=== PATIENT | male | born 1935 | race Caucasian/White ===

== ENCOUNTER 2016-10-26 20:30 | Emergency (ER) | payer MEDICARE, MEDICAID, OTHER ==
[~2016-10-26] VITALS: Ht 175.3 cm; Wt 72.6 kg
[2016-10-26 20:52] VITALS: BP 153/90
== END 2016-10-27 03:20 | disposition left against medical advice (07) ==
LOC: ER 20:30
DX: E78.00 Pure hypercholesterolemia, unspecified (principal); Z76.0 Encounter for issue of repeat prescription; Z53.21 Procedure and treatment not carried out due to patient leaving prior to being seen by health care provider

== ENCOUNTER 2017-11-20 11:59 | Emergency (ER) | payer MEDICARE, MEDICAID, OTHER ==
[~2017-11-20] VITALS: Ht 172.7 cm; Wt 38.6 kg
[~2017-11-20 11:59] MED LIST: ONDA-101 PO; OXY5T GT
[2017-11-20] MEDS ORDERED: SODIUM CHLORIDE 0.9% 1,000 ML IV ONE (12:07)
[2017-11-20 13:01] LABS: Basophils # (auto) 0 uL; Eosinophils # (auto) 0.1 uL; Mean Corpuscular Hemoglobin 28.4 pg (28.0-32.0); Mean Corpuscular Hgb Conc. 31.9 g/dL (32.0-36.0); Mean Corpuscular Volume 89.1 fL (80.0-100.0); Monocytes # (auto) 0.4 uL; Nucleated Red Blood Cells % 0.1 %
[2017-11-20 13:02] LABS: Basophils % (auto) 0.6 % (0.0-2.0); Eosinophils % (auto) 0.9 % (0.0-7.0); Hematocrit 36.8 % (41.0-53.0); Hemoglobin 11.7 g/dL (13.5-17.5); Lymphocytes # (auto) 0.7 uL; Lymphocytes % (auto) 9.6 % (10.0-50.0); Monocytes % (auto) 5.3 % (0.0-12.0); Neutrophils # (auto) 6.3 uL; Neutrophils % (auto) 83.6 % (37.0-80.0); Platelet Count (auto) 518 10^3/uL (140-450); Red Blood Cells 4.13 10^6/uL (4.5-5.90); Red Cell Distribution Width 18.1 % (11.8-14.3); White Blood Cell 7.5 10^3/uL (4.4-10.8)
[2017-11-20 13:19] LABS: Calcium 8.2 mg/dL (8.5-10.1); Magnesium 2.8 mg/dL (1.6-2.6)
[2017-11-20 13:25] LABS: BUN/Creatinine Ratio 18.9; Bilirubin, Total 2.9 mg/dL (0.2-1.0); Total Protein 6.8 g/dL (6.4-8.2)
[2017-11-20 14:37] VITALS: BP 98/68
== END 2017-11-20 16:22 | disposition home or self-care (01) ==
LOC: ER 11:59 → EDBD 11:59 → ER 16:22
DX: R06.03 Acute respiratory distress (principal); C34.90 Malignant neoplasm of unspecified part of unspecified bronchus or lung; C78.7 Secondary malignant neoplasm of liver and intrahepatic bile duct; Z88.6 Allergy status to analgesic agent
CPT/HCPCS: 36415; 80053; 83735; 84484; 85025; 93005; 94761; 96360; 99285; J7030